=== PATIENT | female | born 1935 | race Caucasian/White ===

== ENCOUNTER 2018-11-27 16:14 | Outpatient (CLI) | payer MEDICARE ==
--- NOTE | 2018-11-27 16:46 | RAD ---
XR Thoracic Spine 2 View: 11/27/2018 12:00 AM CLINICAL INDICATION: Spinal cord stimulator status COMPARISON: None. FINDINGS: Fracture:No fracture. Arthropathy:Degenerative changes are present. There is left convexity curvature at the imaged lumbar spine. Spinal stimulator is seen overlying the dorsal aspect of the thoracic vertebral canal. This terminate s at the approximate T7-8 level. IMPRESSION: 1. Spinal stimulator with leads terminating at the T7-8 level.
== END 2018-11-27 16:15 | disposition home or self-care (01) ==
LOC: RAD 16:14
PROVIDERS: ATTEND Family Medicine
DX: Z47.89 Encounter for other orthopedic aftercare (principal); Z96.89 Presence of other specified functional implants
CPT/HCPCS: 72070

== ENCOUNTER 2021-02-22 15:10 | Outpatient (CLI) | payer MEDICARE ==
[2021-02-23 00:51] LABS: SARS-CoV-2 PCR by NAA Not Detected (NotDetected)
== END 2021-02-22 15:11 | disposition home or self-care (01) ==
LOC: LABBT 15:10
PROVIDERS: ATTEND Otolaryngology Otolaryngic Allergy
DX: Z01.812 Encounter for preprocedural laboratory examination (principal); J04.0 Acute laryngitis; Z20.822 Contact with and (suspected) exposure to COVID-19
CPT/HCPCS: U0003; U0005

== ENCOUNTER 2021-02-24 13:01 | Outpatient (CLI) | payer MEDICARE | END 2021-02-24 13:02 | disposition home or self-care (01) | PROVIDERS: ATTEND Otolaryngology Otolaryngic Allergy | DX: R13.11 Dysphagia, oral phase (principal); R13.12 Dysphagia, oropharyngeal phase; R63.30 Feeding difficulties, unspecified; J04.0 Acute laryngitis | CPT/HCPCS: 74230 ==